=== PATIENT | male | born 1935 | race Caucasian/White ===

== ENCOUNTER 2016-04-30 00:36 | Emergency (ER) | payer MEDICARE, OTHER ==
--- NOTE | 2016-04-30 01:16 | ER Document Report ---
ED General - General Chief Complaint: Fall Injury Stated Complaint: FALL,RIGHT SIDE PAIN Notes: Patient is a 80-year-old male presents with complaint of a fall. He has dementia. According to his he has good days and bad days. She says today was one of his not so good days or he's been more confused and a little wobbly on his feet. He does use a walker. Today he fell onto his right side. He complains of pain in his right hip as well as right ribs. He may have hit his head. He is on aspirin. He has no other complaints at this time. His denies recent fevers or infections. No other complaints at this time. - Related Data Allergies/Adverse Reactions: cephalexin [From Keflex] Adverse Reaction (Severe, Verified 04/30/16 00:48) Anaphylaxis Past Medical History - Social History Smoking Status: Never Smoker Frequency of alcohol use: None Drug Abuse: None Family History: Reviewed & Not Pertinent - Past Medical History Cardiac Medical History: Reports: Hx Hypercholesterolemia Review of Systems - Review of Systems Notes: My Normal Review Basic REVIEW OF SYSTEMS: CONSTITUTIONAL : Denies fever, chills, or sweats. Denies recent illness. EENT: Denies eye, ear, throat, or mouth pain or symptoms. Denies nasal or sinus congestion. CARDIOVASCULAR: Denies chest pain. RESPIRATORY: Denies cough, cold, or chest congestion. Denies shortness of breath, difficulty breathing, or wheezing. GASTROINTESTINAL: Denies abdominal pain. Denies nausea, vomiting, or diarrhea. Denies constipation. Last BM: GENITOURINARY: Denies difficulty urinating, painful urination, burning, frequency, or blood in urine. MUSCULOSKELETAL: Pain in right hip and right ribs. SKIN: Denies rash or skin lesions. HEMATOLOGIC : Denies easy bruising or bleeding. NEUROLOGICAL: Chronic dementia.. Denies headache. Denies weakness or paralysis or loss of use of either side. Denies problems with gait or speech. Denies sensory or motor loss. ALL OTHER SYSTEMS REVIEWED AND NEGATIVE. Physical Exam - Vital signs Vitals: Resp 18 04/30/16 00:48 - Notes Notes: General Appearance: Well nourished, alert, cooperative, no acute distress, no obvious discomfort. Well-appearing Vitals: reviewed, See vital signs table. Head: no swelling or tenderness to the head Eyes: PERRL, EOMI, Conjuctiva clear Mouth: No decreasd moisture Throat: No tonsillar inflammation, No airway obstruction, No lymphadenopathy Neck: Supple, mild mid lower cervical tenderness, No thyromegaly. No step-offs or deformities. Lungs: No wheezing, No rales, No rhonci, No accessory muscle use, good air exchange bilaterally. Heart: Normal rate, Regular rythm, No murmur, no rub Abdomen: Normal BS, soft, No rigidity, No abdominal tenderness, No guarding, no rebound, no abdominal masses, no organomegaly Extremities: strength 5/5 in all extremities, good pulses in all extremities, no swelling or tenderness in the extremities, no edema. Skin: warm, dry, appropriate color, no rash Neuro: speech clear, oriented x 3, normal affect, responds appropriately to questions. Cranial nerves II through XII are intact. Distal sensation intact. Patient moves all extremities without difficulty. Course - Vital Signs Vital signs: Temp Pulse Resp BP Pulse Ox 97.9 F 70 16 146/78 H 98 04/30/16 01:00 04/30/16 01:00 04/30/16 01:00 04/30/16 01:00 04/30/16 01:00 - Laboratory Result Diagrams: 04/30/16 01:20 04/30/16 01:20 Laboratory results interpreted by me: 04/30/16 04/30/16 04/30/16 01:20 01:20 02:30 RBC 4.00 L Hgb 13.3 L Chloride 108 H BUN 27 H Creatinine 1.76 H Est GFR ( Amer) 45 L Est GFR (Non-Af Amer) 37 L Urine Urobilinogen 2.0 H - Transfer of Care Notes: 04/30/16 05:11 Patient's x-rays just showed the single rib fracture. Patient otherwise looks well and is vitally stable. He has no signs of infection. He otherwise looks and feels well. Has no signs of acute stroke and that he has no focal weakness or numbness. I did speak with the and she does want take him home. There is a neighbor was at bedside who helps the and the . He did pull male sonogram informed me that he does help some. He does have concerns that the does have some difficulty helping care for the patient's; however, the is repeatedly refused [facility] placement. They do have kids who live not too far away. The neighbor just requested that we keep the patient's her to morning time so that he can help get them in the house get him situated in the morning. I think is perfectly appropriate. The does agree to this as well. The morning time we will discharge patient. I encouraged him to return to ER immediately if there is any fevers, signs of infection, difficulty breathing, or worsening pain. Patient and agree with plan and will be discharged home in the morning when more resources are available to help them. Dictation of this chart was performed using voice recognition software; therefore, there may be some unintended grammatical errors. Discharge - Discharge Clinical Impression: Fall Qualifiers: Encounter type: initial encounter Qualified Code(s): W19.XXXA - Unspecified fall, initial encounter Rib fracture Qualifiers: Encounter type: initial encounter Rib fracture type: single rib Fracture type: closed Laterality: right Qualified Code(s): S22.31XA - Fracture of one rib, right side, initial encounter for closed fracture Condition: Good Disposition: HOME, SELF-CARE Additional Instructions: Rib Injuries and Fractures You have been diagnosed as having either bruised or broken ribs. These two injuries are treated in the same way. It will usually take four to six weeks for these injured ribs to heal. Sometimes, rib belts or anesthetic injections of the chest wall help reduce the pain. If you are using a rib belt, you should cough or take a deep breath at least every hour or two to prevent lung complications. You should not engage in any strenuous physical activity until released by your physician. The usual rule is "if it hurts, don't do it." Rib fractures can lead to serious lung complications including lung collapse, hemorrhage, and pneumonia. You should call the physician or return at once if any of the following occur: (1) Fever or chills. (2) Persistent cough, coughing up blood, or shortness of breath. (3) Increasing pain. (4) Weakness, lightheadedness, or fainting. Please follow up with your doctor in 2-3 days for close reevaluation. please return to the ER immediately if you develop worsening pain, difficulty breathing , fevers, or feel unwell. Please ambulate only with your walker or assistance. Please use the incentive spirometer every hour to help prevent development of pneumonia. Referrals: MARY DIXON [Primary Care Provider] - 05/02/16
[2016-04-30 01:32] LABS: ABSOLUTE EOSINOPHILS # (AUTO) 0.2 10^3/uL (0.0-0.6); ABSOLUTE LYMPHOCYTES (AUTO) 1.5 10^3/uL (0.5-4.7); ABSOLUTE MONOCYTES (AUTO) 0.8 10^3/uL (0.1-1.4); ABSOLUTE NEUT (AUTO) 6.2 10^3/uL (1.7-8.2); BASOPHILS % (AUTO) 0.3 % (0-2); EOSINOPHILS % (AUTO) 2.6 % (0-6); HEMATOCRIT 38.4 % (37.9-51.0); HEMOGLOBIN 13.3 g/dL (13.5-17.0); HGB HCT DIFFERENCE 1.5; LYMPHOCYTES % (AUTO) 17.1 % (13-45); MEAN CORPUSCULAR HEMOGLOBIN 33.2 pg (27.0-33.4); MEAN CORPUSCULAR HGB CONC 34.6 g/dL (32.0-36.0); MEAN CORPUSCULAR VOLUME 96 fl (80-97); MONOCYTES % (AUTO) 9.2 % (3-13); RED CELL DISTRIBUTION WIDTH 12.2 % (11.5-14.0); SEGMENTED NEUTROPHILS % (AUTO) 70.8 % (42-78); WHITE BLOOD COUNT 8.8 10^3/uL (4.0-10.5)
[2016-04-30 01:54] LABS: ANION GAP 12 (5-19); BLOOD UREA NITROGEN 27 mg/dL (7-20); CALCIUM 8.8 mg/dL (8.4-10.2); CARBON DIOXIDE 25 mmol/L (22-30); CHLORIDE 108 mmol/L (98-107); CREATININE RESULT 1.76 mg/dL (0.52-1.25); GLUCOSE 100 mg/dL (75-110); POTASSIUM 4.2 mmol/L (3.6-5.0); SODIUM 144.7 mmol/L (137-145)
[2016-04-30 02:45] LABS: APPEARANCE,URINE SLIGHTLY-CLOUDY; BILIRUBIN,URINE NEGATIVE (NEGATIVE); GLUCOSE, URINE NEGATIVE (NEGATIVE); KETONES,URINE NEGATIVE (NEGATIVE); LEUKOCYTE ESTERASE,URINE NEGATIVE (NEGATIVE); NITRITE,URINE NEGATIVE (NEGATIVE); PROTEIN,URINE NEGATIVE (NEGATIVE); URINE SPECIFIC GRAVITY 1.025
[2016-04-30 06:52] VITALS: BP 118/76
== END 2016-04-30 06:45 | disposition home or self-care (01) ==
LOC: ER 00:36
DX: S22.31XA Fracture of one rib, right side, initial encounter for closed fracture (principal); R10.9 Unspecified abdominal pain; F03.90 Unspecified dementia, unspecified severity, without behavioral disturbance, psychotic disturbance, mood disturbance, and anxiety; M25.551 Pain in right hip; R07.81 Pleurodynia; W19.XXXA Unspecified fall, initial encounter
CPT/HCPCS: 36415; 70450; 72125; 74176; 80048; 81001; 85025; 99284